=== PATIENT | female | born 1985 | race Two or more races ===

== ENCOUNTER 2022-05-02 09:27 | Inpatient (IN) | payer OTHER ==
[~2022-05-02] VITALS: Ht 165.1 cm; Wt 97.5 kg
[2022-05-02] MEDS ORDERED: PRENATABS RX T1 EACH PO (09:57)
== END 2022-05-04 14:48 | disposition home or self-care (01) | DRG 807 ==
LOC: LDR 09:27 → OB/GYN 09:27
PROVIDERS: ADMIT Obstetrics & Gynecology; ATTEND Obstetrics & Gynecology
PROC: 10E0XZZ Delivery of Products of Conception, External Approach (ICD-10-PCS; principal; 2022-05-02)
PROC: 0KQM0ZZ Repair Perineum Muscle, Open Approach (ICD-10-PCS; 2022-05-02)
PROC: 4A1HXCZ Monitoring of Products of Conception, Cardiac Rate, External Approach (ICD-10-PCS; 2022-05-02)
DX: O70.1 Second degree perineal laceration during delivery (principal); Z37.0 Single live birth; O99.824 Streptococcus B carrier state complicating childbirth; Z3A.40 40 weeks gestation of pregnancy; Z20.822 Contact with and (suspected) exposure to COVID-19

== ENCOUNTER 2022-07-04 07:03 | Day surgery (SDC) | payer OTHER ==
[~2022-07-04 07:03] MED LIST: PRENATABS RX T1 EACH PO
== END 2022-07-04 18:25 | disposition home or self-care (01) ==
LOC: CIR.AMB 07:03
PROVIDERS: ATTEND Obstetrics & Gynecology
DX: N70.91 Salpingitis, unspecified (principal); Z30.2 Encounter for sterilization; R10.2 Pelvic and perineal pain; Z20.822 Contact with and (suspected) exposure to COVID-19